=== PATIENT | female | born 1955 | race Caucasian/White ===

== ENCOUNTER 2016-06-03 14:48 | Emergency (ER) | payer OTHER ==
[~2016-06-03] VITALS: Ht 157.5 cm; Wt 80.0 kg
[2016-06-03 14:51] VITALS: Ht 157.5 cm; Wt 80.0 kg
[2016-06-03] MEDS ORDERED: IBUPROFEN 200 MG TAB PO ONE (15:30)
[2016-06-03] MEDS ORDERED: CYCLOBENZAPRINE 10 MG TAB PO ONE (15:30)
[2016-06-03 16:49] LABS: ADD UMIC NO; URINE BILIRUBIN (Dip) NEGATIVE (NEGATIVE); URINE BLOOD (Dip) NEGATIVE (NEGATIVE); URINE COLOR LT. YELLOW (YELLOW); URINE GLUCOSE (Dip) NEGATIVE (NEGATIVE); URINE KETONES (Dip) 15 (NEGATIVE); URINE LEUKOCYTE ESTERASE (Dip) NEGATIVE (NEGATIVE); URINE NITRITE (Dip) NEGATIVE (NEGATIVE); URINE TOTAL PROTEIN (Dip) NEGATIVE (NEGATIVE); URINE UROBILINOGEN (Dip) 0.2 E.U./dL (0.1-1.0)
[2016-06-03] MEDS ORDERED: CYCL-319 PO (17:09)
[2016-06-03] MEDS ORDERED: IBUP400T22 PO (17:09)
[2016-06-03 17:25] VITALS: BP 140/80; PULSE 67; RESP 20; TEMP 97.3
--- NOTE | 2016-06-03 17:50 | ERD ---
ER Documentation Chief Complaint Date/Time DATE: 06/03/16 TIME: 17:45 Chief Complaint back pain HPI 61-year-old female with a past medical history of hypertension presents to the ED complaining of left-sided back pain that started earlier today. Describes the pain as strong and rates it a 6 out of 10. States that she took 2 tabs of Tylenol which did not help with her pain. Patient reports that she is afraid that this could be a kidney infection. Denies any heavy lifting, saddle anesthesia, bowel or urine incontinence, numbness or tingling, abdominal pain, dysuria, urgency, frequency, fever, chills. Denies any trauma. ROS All systems reviewed and are negative except as per history of present illness. Medications Home Meds Active Scripts Cyclobenzaprine Hcl* (Cyclobenzaprine Hcl*) 10 Mg Tablet, 10 MG PO TID, #15 TAB Prov:DEE DEE GRANT PA-C 06/03/16 Ibuprofen* (Motrin*) 400 Mg Tab, 400 MG PO Q6, #30 TAB Prov:DEE DEE GRANT PA-C 06/03/16 Allergies Allergies: Coded Allergies: No Known Allergy (Unverified , 06/03/16) PMhx/Soc History of Surgery: Yes (HYSTERECTOMY) Anesthesia Reaction: No Hx Neurological Disorder: No Hx Respiratory Disorders: No Hx Cardiac Disorders: No Hx Psychiatric Problems: No Hx Miscellaneous Medical Probl: No Hx Alcohol Use: No Hx Substance Use: No Hx Tobacco Use: No Smoking Status: Unknown if ever smoked Physical Exam Vitals Vital Signs Date Time Temp Pulse Resp B/P Pulse Ox O2 Delivery O2 Flow Rate FiO2 06/03/16 17:25 97.3 67 20 140/80 99 06/03/16 14:51 98.1 90 20 156/80 99 Physical Exam Const: [id number], well-nourished. In no acute distress. Head: Atraumatic, normocephalic Eyes: Normal Conjunctiva without injection. No purulent discharge. ENT: Normal external ear, nose. Moist oropharynx without tonsillar exudates. Non -erythematous pharynx. Uvula midline. No drooling. No trismus. Neck: No cervical midline tenderness. Full range of motion. No meningismus. No cervical lymphadenopathy. No JVD. Resp: Clear to auscultation bilaterally. No wheezing, rhonchi, rales, or crackles. No accessory muscle use. No retractions. Cardio: Regular rate and rhythm. No murmurs, rubs or gallops. Abd: Soft, non distended. Normal bowel sounds. No palpable masses. No rebound tenderness. No guarding. Negative McBurney's point. Negative psoas sign. Negative obturator sign. Skin: No petechiae or rashes Back: No midline tenderness. No CVA tenderness. Tenderness to palpation of the left lumbar muscles. Muscle spasm present. Ext: No cyanosis, or edema. Neur: Awake and alert. Normal gait. Normal coordination. Psych: Normal Mood and Affect Results 24 hrs Laboratory Tests Test 06/03/16 16:30 Urine Color LT. YELLOW Urine Clarity SLIGHTLY CLOUDY Urine pH 6.5 Urine Specific [place] 1.010 Urine Ketones 15 Urine Nitrite NEGATIVE Urine Bilirubin NEGATIVE Urine Urobilinogen 0.2 E.U./dL Urine Leukocyte Esterase NEGATIVE Urine Hemoglobin NEGATIVE Urine Glucose NEGATIVE% Urine Total Protein NEGATIVE Current Medications Medications (Trade) Dose Ordered Sig/Bella Route PRN Reason Start Time Stop Time Status Last Admin Dose Admin Ibuprofen (Motrin) 400 mg ONCE ONCE PO 06/03/16 15:30 06/03/16 15:31 DC 06/03/16 15:57 Cyclobenzaprine HCl (Flexeril) 10 mg ONCE ONCE PO 06/03/16 15:30 06/03/16 15:31 DC 06/03/16 15:57 Procedures/MDM 61-year-old female with past medical history of hypertension presents to the ED complaining of left-sided back pain. Patient is afebrile and nontoxic- appearing. Patient has normal vital signs. Urinalysis was ordered. No leukocyte esterase, hematuria, nitrite. Patient was also given ibuprofen and Flexeril here in the ED. Patient reports that her pain has improved. Patient' s pain could likely be due to musculoskeletal pain. Patient is ambulating here in the ED without difficulty. Denies saddle anesthesia, numbness or tingling, urine or bowel incontinence, weakness. Low suspicion for cauda equina syndrome, cord compression, nephrolithiasis, aortic aneurysm, aortic dissection, epidural abscess, spinal hematoma, malignancy, pyelonephritis, degenerative disc disease , spinal stenosis, or other emergent conditions. Discharge medications: Flexeril, Ibuprofen Follow up with primary care physician in 1-2 days. Instructed patient to return to the ED sooner for any worsening symptoms. Patient's questions were answered. Patient understood and agreed with discharge plan. Patient discharged stable. Departure Diagnosis: Primary Impression: Back pain Back pain location: low back pain Chronicity: acute Back pain laterality: left Sciatica presence: unspecified whether sciatica present Qualified Code: M54.5 - Acute left-sided low back pain, with sciatica presence unspecified Condition: Stable Patient Instructions: Muscle Spasm, Back Pain (Acute Or Chronic) Referrals: [facility]) [facility] Usted se alatorre hecho un examen mdico de control que le indica que no est en mino condicin que requiera tratamiento urgente en el Departamento de Emergencia. Un estudio ms profundo y el tratamiento de mcclure condicin pueden esperar sin ningn riesgo hasta que usted sea atendida/o en el consultorio de mcclure mdico o mino cl anju. Es responsabilidad suya arreglar mino alem para el seguimiento del taqueria. MANEJO DE CONDICIONES NO URGENTES EN EL FUTURO 1) Si usted tiene un mdico de atencin primaria: Usted debera llamar a mcclure mdico de atencin primaria antes de venir al departamento de emergencia. Despus de las horas de consultorio, mcclure doctor o mcclure asociado/a est disponible por telfono. El mdico o enfermero de jared en el servicio telefnico puede asesorarle por dolores medio para atender el problema, o taqueria contrario se puede programar mino alem. 2) Si usted no tiene un mdico de atencin primaria: Llame al mdico o clnica de referencia que aparece abajo gretchen las horas de consultorio para hacer mino alem para que le vean. CLINICAS: [facility] [phone] [facility] [phone] [facility] [phone] [facility] 845 [phone] [facility] [phone] [facility]. [phone] [address] [facility]. [facility] () Usted se alatorre hecho un examen mdico de control que le indica que no est en mino condicin que requiera tratamiento urgente en el Departamento de Emergencia. Un estudio ms profundo y el tratamiento de mcclure condicin pueden esperar sin ningn riesgo hasta que usted sea atendida/o en el consultorio de mcclure mdico o mino cl anju. Es responsabilidad suya arreglar mino alem para el seguimiento del taqueria. MANEJO DE CONDICIONES NO URGENTES EN EL FUTURO 1) Si usted tiene un mdico de atencin primaria: Usted debera llamar a mcclure mdico de atencin primaria antes de venir al departamento de emergencia. Despus de las horas de consultorio, mcclure doctor o mcclure asociado/a est disponible por telfono. El mdico o enfermero de jared en el servicio telefnico puede asesorarle por dolores medio para atender el problema, o taqueria contrario se puede programar mino alem. 2) Si usted no tiene un mdico de atencin primaria: Llame al mdico o condado institucions de referencia que aparece abajo gretchen las horas de consultorio para hacer mino alem para que le vean. SI USTED NO PUEDE PAGAR PARA CHRIS UN MEDICO puede ir a: [facility] [address] [place] [address] [facility] [address] [place] [address] [facility] [address] [place] [address] [facility] [address] [place] [address] Additional Instructions: Llame al doctor MAANA y radha mino ALEM PARA DENTRO DE 2-3 OLSEN.Dgale a la secretaria que nosotros le instruimos hacer esta alem.Avise o llame si mcclure condicin se empeora antes de la alem. Regresa aqui si peor o no mejor. DEE DEE GRANT PA-C Jun 03, 2016 17:50
== END 2016-06-03 17:28 | disposition home or self-care (01) ==
LOC: FTE 14:48
DX: M54.5 Low back pain (principal)
CPT/HCPCS: 81003; Z7502; Z7610; 99283

== ENCOUNTER 2017-02-12 10:03 | Emergency (ER) | payer OTHER ==
[~2017-02-12] VITALS: Ht 165.1 cm; Wt 94.0 kg
[~2017-02-12 10:03] MED LIST: CYCL-319 PO; IBUP400T22 PO
[2017-02-12 10:06] VITALS: Ht 165.1 cm; Wt 94.0 kg
[2017-02-12] MEDS ORDERED: morphine 2 MG INJ IV STA (10:25)
[2017-02-12] MEDS ORDERED: SOD CHLORIDE 0.9% 500 ML IV STA (10:25)
[2017-02-12] MEDS ORDERED: ALBUTEROL 0.083% (NEB) 2.5 MG/3 ML AMP HHN STA (10:25)
[2017-02-12] MEDS ORDERED: IPRATROPIUM (NEB) 0.5 MG/2.5 ML AMP HHN ONE (10:30)
--- NOTE | 2017-02-12 10:40 | RADRPT ---
PROCEDURE: XR Chest. CLINICAL INDICATION: Chest pain . TECHNIQUE: Single frontal chest x-ray. COMPARISON: None. FINDINGS: The lungs are clear of acute infiltrates, edema, effusions, or masses.. The cardiomediastinal silho uette is unremarkable. The osseous structures are intact. IMPRESSION: No acute cardiopulmonary disease. RPTAT: QQ .Jeffy Grant MD, MD Date Time Electronically viewed and signed by .Jeffy Grant MD, MD on 02/12/2017 10:40 .L/
[2017-02-12] MEDS ORDERED: HYDR25TA6 PO (10:44)
[2017-02-12] MEDS ORDERED: FLOV110 INHALATION (10:44)
[2017-02-12] MEDS ORDERED: ALBU18HF INHALATION ×2 (10:44→12:10)
[2017-02-12 11:03] LABS: BASOPHILS % 0.2 % (0.0-2.0); EOSINOPHILS # 0.2 10^3/ul (0.0-0.5); EOSINOPHILS % 1.8 % (0.0-7.0); HEMATOCRIT 36.2 % (37.0-47.0); HEMOGLOBIN 12.5 g/dl (12.0-16.0); LYMPHOCYTES # 3.7 10^3/ul (0.8-2.9); LYMPHOCYTES % 38.9 % (15.0-51.0); MEAN CORPUSCULAR HEMOGLOBIN 29.6 pg (29.0-33.0); MEAN CORPUSCULAR HGB CONC 34.5 g/dl (32.0-37.0); MEAN CORPUSCULAR VOLUME 85.8 fl (82.0-101.0); MEAN PLATELET VOLUME 11.5 fl (7.4-10.4); MONOCYTE # 0.8 10^3/ul (0.3-0.9); MONOCYTES % 8.3 % (0.0-11.0); NEUTROPHIL # 4.8 10^3/ul (1.6-7.5); NEUTROPHILS % 50.5 % (39.0-77.0); PLATELET COUNT 258 10^3/UL (140-415); RED BLOOD COUNT 4.22 10^6/ul (4.20-5.40); RED CELL DISTRIBUTION WIDTH 13.3 % (11.5-14.5); WHITE BLOOD COUNT 9.5 10^3/ul (4.8-10.8)
[2017-02-12 11:29] LABS: ANION GAP 13 (8-16); BLOOD UREA NITROGEN 9 mg/dl (7-20); CALCIUM 9.9 mg/dl (8.4-10.2); CARBON DIOXIDE 30 mmol/L (21-31); CHLORIDE 106 mmol/L (97-110); CREATININE 0.58 mg/dl (0.44-1.00); GLUCOSE 98 mg/dl (70-220); SODIUM 145 mmol/L (135-144)
[2017-02-12 11:41] LABS: B-TYPE NATRIURETIC PEPTIDE 62 PG/ML (0-125)
[2017-02-12 11:43] LABS: TROPONIN-I < 0.012 ng/ml (0.00-0.12)
[2017-02-12] MEDS ORDERED: AZIT250T94 PO (12:10)
[2017-02-12] MEDS ORDERED: NAPR-688 PO (12:10)
[2017-02-12] MEDS ORDERED: PRED20TA PO (12:11)
[2017-02-12 12:22] VITALS: BP 135/79; PULSE 98; RESP 18; TEMP 97.9
--- NOTE | 2017-02-12 12:25 | ERD ---
ER Documentation Chief Complaint Chief Complaint Complains of chest pain Hx of Asthma HPI This 61-year-old female presents emergency room with a cough for the last few days. She also has a substernal sharp chest pain that radiates to her back. She has a history of hypertension and hypercholesterolemia. She has some generalized body aches as well. She also has increased phlegm is in the mucus that she is coughing which is clear. Denies shortness of breath currently. ROS All systems reviewed and are negative except as per history of present illness. Medications Home Meds Active Scripts Prednisone (Prednisone) 20 Mg Tab, 40 MG PO DAILY, #4 TAB Prov:ALEJA GERMAIN DO 02/12/17 Albuterol Sulfate* (Ventolin HFA*) 18 Gm Hfa.aer.ad, 2 PUFF INHALATION Q4H, #1 INHALER Prov:ALEJA GERMAIN DO 02/12/17 Naproxen* (Naproxen*) 500 Mg Tablet, 500 MG PO BID Y for PAIN, #14 TAB Prov:ALEJA GERMAIN DO 02/12/17 Azithromycin* (Zithromax*) 250 Mg Tablet, 250 MG PO .ZPACK DIRECTED, #6 TAB TAKE 500 MG (2 TABS) THE FIRST DAY THEN 250 MG (1 TAB) DAYS 2-5 Prov:ALEJA GERMAIN DO 02/12/17 Reported Medications Albuterol Sulfate* (Ventolin HFA*) 18 Gm Hfa.aer.ad, 2 PUFF INHALATION Q4H, #1 INHALER 02/12/17 Fluticasone Propionate* (Flovent* HFA 110) 12 Gm Inha, 2 PUFF INHALATION BID, # 1 INHALER 02/12/17 Hydrochlorothiazide* (Hydrochlorothiazide*) 25 Mg Tab, 25 MG PO DAILY, #30 TAB 02/12/17 Discontinued Scripts Cyclobenzaprine Hcl* (Cyclobenzaprine Hcl*) 10 Mg Tablet, 10 MG PO TID, #15 TAB Prov:DEE DEE GRANT PA-C 06/03/16 Ibuprofen* (Motrin*) 400 Mg Tab, 400 MG PO Q6, #30 TAB Prov:DEE DEE GRANT PA-C 06/03/16 Allergies Allergies: Coded Allergies: No Known Allergy (Unverified , 02/12/17) PMhx/Soc History of Surgery: Yes (HYSTERECTOMY) Anesthesia Reaction: No Hx Neurological Disorder: No Hx Respiratory Disorders: No Hx Cardiac Disorders: Yes (HTN) Hx Psychiatric Problems: No Hx Miscellaneous Medical Probl: No Hx Alcohol Use: No Hx Substance Use: No Hx Tobacco Use: No Smoking Status: Never smoker Physical Exam Vitals Vital Signs Date Time Temp Pulse Resp B/P Pulse Ox O2 Delivery O2 Flow Rate FiO2 02/12/17 10:50 Nasal Cannula 2 02/12/17 10:50 Nasal Cannula 02/12/17 10:06 97.7 97 20 185/82 97 Physical Exam Const: [] Distress Head: Atraumatic Eyes: Normal Conjunctiva ENT: Normal External Ears, Nose and Mouth. Neck: Full range of motion..~ No meningismus. Resp: Mild low pitched expiratory wheezes bilaterally, good air movement. Cardio: Regular rate and rhythm, no murmurs Abd: Soft, non tender, non distended. Normal bowel sounds Skin: No petechiae or rashes Back: No midline or flank tenderness Ext: No cyanosis, or edema Neur: Awake and alert and oriented 3, no focal deficits Psych: Normal Mood and Affect Result Diagram: 02/12/17 1045 02/12/17 1045 Results 24 hrs Laboratory Tests Test 02/12/17 10:45 White Blood Count 9.510^3/ul Red Blood Count 4.2210^6/ul Hemoglobin 12.5g/dl Hematocrit 36.2% Mean Corpuscular Volume 85.8fl Mean Corpuscular Hemoglobin 29.6pg Mean Corpuscular Hemoglobin Concent 34.5g/dl Red Cell Distribution Width 13.3% Platelet Count 66224^3/UL Mean Platelet Volume 11.5fl Neutrophils % 50.5% Lymphocytes % 38.9% Monocytes % 8.3% Eosinophils % 1.8% Basophils % 0.2% Nucleated Red Blood Cells % 0.0/100WBC Neutrophils # 4.810^3/ul Lymphocytes # 3.710^3/ul Monocytes # 0.810^3/ul Eosinophils # 0.210^3/ul Basophils # 0.010^3/ul Nucleated Red Blood Cells # 0.010^3/ul Sodium Level 145mmol/L Potassium Level 4.0mmol/L Chloride Level 106mmol/L Carbon Dioxide Level 30mmol/L Anion Gap 13 Blood Urea Nitrogen 9mg/dl Creatinine 0.58mg/dl Glucose Level 98mg/dl Calcium Level 9.9mg/dl Troponin I < 0.012ng/ml B-Type Natriuretic Peptide 62PG/ML Current Medications Medications (Trade) Dose Ordered Sig/Bella Route PRN Reason Start Time Stop Time Status Last Admin Dose Admin Sodium Chloride (NS) 500 ml @ 500 mls/hr Q1H STAT IV 02/12/17 10:25 02/12/17 11:24 DC 02/12/17 10:56 Morphine Sulfate (morphine) 2 mg ONCE STAT IV 02/12/17 10:25 02/12/17 10:27 DC Albuterol (Proventil 0.083% (Neb)) 5 mg ONCE STAT HHN 02/12/17 10:25 02/12/17 10:27 DC 02/12/17 11:54 Ipratropium [place] (Atrovent 0.02% (Neb)) 0.5 mg ONCE ONCE HHN 02/12/17 10:30 02/12/17 10:31 DC 02/12/17 11:54 Procedures/MDM 61-year-old female with likely viral bronchitis. Low suspicion for acute coronary syndrome as patient has a nonischemic EKG and negative troponin after 2 days of chest pain. Also have low suspicion for aortic dissection of the patient does have high blood pressure. She is going take her medication when she gets home. She was given albuterol Atrovent breathing treatment which improved her breathing and cough. She also given 2 mg of morphine which helped with her pain. Going to discharge with azithromycin as well as albuterol and prednisone. I spoke with both her and her son about going to her primary care doctor and obtaining an echocardiogram to make sure that the heart is functioning normally. Strict return precautions to the ER for any concerning symptoms EKG interpretation: Normal sinus rhythm rate of 87, normal axis, no ST or T- wave changes concerning for acute ischemia, normal intervals. Normal EKG patient monitor interpretation: Normal sinus rhythm without arrhythmia Chest x-ray interpretation: I see no acute process. I see no infiltrates, pneumothorax, no pulmonary edema, no fractures Departure Diagnosis: Primary Impression: Bronchitis, acute Additional Impression: Chest pain Condition: Stable Patient Instructions: Bronchitis With Wheezing (Adult), Chest Pain, Uncertain Cause Additional Instructions: Llame al doctor CHANELL y radha mino ALEM PARA DENTRO DE 2-3 OLSEN.Dgale a la secretaria que nosotros le instruimos hacer esta alem.Avise o llame si mcclure condicin se empeora antes de la alem. Regresa aqui si peor o no mejor. ALEJA GERMAIN DO Feb 12, 2017 12:25
== END 2017-02-12 12:41 | disposition home or self-care (01) ==
LOC: E/R 10:03
DX: J20.9 Acute bronchitis, unspecified (principal); I10 Essential (primary) hypertension
CPT/HCPCS: 36415; 71010; 80048; 83880; 84484; 85025; 94640; J7040; Z7502; Z7610; 93005